=== PATIENT | female | born 1965 | race Caucasian/White ===

== ENCOUNTER 2018-07-21 09:21 | Emergency (ER) | payer OTHER ==
[~2018-07-21] VITALS: Ht 162.6 cm; Wt 56.7 kg
[~2018-07-21 09:21] MED LIST: CELEBREX200 MG PO; DEXI PO; HUMIRA20 MG/0.4 SQ; LEVOTHYROXINE50 MCG PO; REFLUX MED; SERTRALINE HCL100 MG PO
[2018-07-21] MEDS ORDERED: ONDANSETRON HCL INJ 2 MG/ML VIAL IV STA (09:53)
[2018-07-21] MEDS ORDERED: MORPHINE SULFATE 2 MG/ML SYR IV STA (09:53)
--- NOTE | 2018-07-21 10:44 | Diagnostic Imaging Report ---
Examination: CT head without contrast Clinical Indication: Headaches and migraines for 3 days. Technique: Transaxial noncontrast images from the skull base through the vertex were obtained. Sagittal and coronal reformatted images were done. Dose modulation, iterative reconstruction, and/or weight based adjustment of the mA/kV was utilized to reduce the radiation dose to as low as reasonably achievable. Comparison: Brain MRI performed June 25, 2014. Findings: Scalp: No abnormalities. Bones: Intact. No fractures. No blastic or lytic lesions. Brain sulci: Appropriate for patient's age. Ventricles: Normal in size and configuration. No hydrocephalus. Extra-axial space: No abnormalities. Parenchyma: No abnormal densities. No masses, hemorrhage, or acute or chronic cortical based vascular insults. Suprasellar region: No abnormalities. Craniocervical junction: The foramen magnum is patent. No Chiari one malformation. Impression: No new intracranial abnormality when compared to prior brain MRI performed in 2013. Signed by: Dr. Alexandria Goodrich M.D. on 07/21/2018 10:41 AM
[2018-07-21] MEDS ORDERED: KETOROLAC TROMETHAMINE 30 MG/ML VIAL IV STA (11:05)
[2018-07-21] MEDS ORDERED: FENTANYL CITRATE/PF 100MCG/2 ML INJ IV ONE (11:30)
[2018-07-21 12:18] VITALS: BP 113/63
== END 2018-07-21 12:31 | disposition home or self-care (01) ==
LOC: FSED 09:21
DX: G43.019 Migraine without aura, intractable, without status migrainosus (principal); M54.2 Cervicalgia; K50.90 Crohn's disease, unspecified, without complications
CPT/HCPCS: 70450; 81025; 99284; J1885; J2270; J2405